=== PATIENT | female | born 1960 | race Caucasian/White ===

== ENCOUNTER 2019-09-29 16:10 | Inpatient (IN) | payer OTHER ==
[~2019-09-29] VITALS: Ht 180.3 cm; Wt 137.0 kg
[2019-09-29] MEDS ORDERED: HYDROMORPHONE HCL 0.5 MG/ 0.5 ML SYRINGE (J1170 PER 1) IM ONE ×2 (17:30→19:15)
--- NOTE | 2019-09-29 19:08 | REPVR ---
PROCEDURE INFORMATION: Exam: XR Right Ankle Exam date and time: 09/29/2019 7:02 PM Age: 59 years old Clinical indication: Pain; Ankle; Right; Patient HX: Post reduction; Additional info: Right ankle fracture; Post splint TECHNIQUE: Imaging protocol: XR Right ankle. Views: 1 or 2 views. COMPARISON: CCR-ANKLE RIGHT OUTSIDE PRIOR 09/29/2019 10:44 AM FINDINGS: Bones/joints: In cast views postreduction views of a previously demonstrated distal fibular fracture. Cast obscures bone detail. Soft tissues: Unremarkable. IMPRESSION: In cast views of a previously demonstrated distal fibular fracture. Electronically signed by: Bertin Houser On 09/29/2019 19:08:29 PM
[2019-09-29 19:59] LABS: BASO % 0.6 % (0.0-1.0); EOS # 0.5 10^3/uL (0.0-0.5); EOS % 6.6 % (0.0-3.0); HEMATOCRIT 41.8 % (36.0-47.0); LYMPH # 2.5 10^3/uL (1.5-5.0); LYMPH % 34.3 % (24.0-44.0); MEAN CORPUSCULAR HEMOGLOBIN 28.6 pg (27.0-33.0); MEAN CORPUSCULAR HGB CONC 33.5 g/dl (32.0-36.5); MEAN CORPUSCULAR VOLUME 85.5 fl (80.0-96.0); MONO # 0.6 10^3/uL (0.0-0.8); MONO % 7.6 % (0.0-5.0); NEUTROPHILS # 3.6 10^3/uL (1.5-8.5); NEUTROPHILS % 50.5 % (36.0-66.0); PLATELET COUNT, AUTOMATED 357 10^3/uL (150-450); RED BLOOD COUNT 4.89 10^6/uL (4.00-5.40); WHITE BLOOD COUNT 7.2 10^3/uL (4.0-10.0)
[2019-09-29] MEDS ORDERED: HYDROMORPHONE HCL 0.5 MG/ 0.5 ML SYRINGE (J1170 PER 1) IV ONE (20:00)
[2019-09-29 20:29] LABS: ALBUMIN 3.5 GM/DL (3.2-5.2); ALT/SGPT 32 U/L (12-78); BILIRUBIN,TOTAL 0.2 MG/DL (0.2-1.0); BLOOD UREA NITROGEN 10 MG/DL (7-18); CARBON DIOXIDE LEVEL 28 MEQ/L (21-32); CHLORIDE LEVEL 108 MEQ/L (98-107); CREATININE FOR GFR 0.82 MG/DL (0.55-1.30); GLOMERULAR FILTRATION RATE > 60.0 (>51); GLUCOSE, FASTING 96 MG/DL (70-100); POTASSIUM SERUM 4.1 MEQ/L (3.5-5.1); SODIUM LEVEL 141 MEQ/L (136-145); TOTAL PROTEIN 6.9 GM/DL (6.4-8.2)
[2019-09-29] MEDS ORDERED: CRAN450T4 PO (20:58)
[2019-09-29] MEDS ORDERED: ABIL10TA9 PO (20:58)
[2019-09-29] MEDS ORDERED: CRAN400C PO (20:58)
[2019-09-29] MEDS ORDERED: KLON1TAB PO ×2 (20:58)
[2019-09-29] MEDS ORDERED: PAXI40TA10 PO (20:58)
[2019-09-29] MEDS ORDERED: ALIG4CAP PO (20:58)
[2019-09-29] MEDS ORDERED: VITA200028 PO (20:58)
[2019-09-29] MEDS ORDERED: METF850T4 PO (20:58)
[2019-09-29] MEDS ORDERED: OCUV1CAP4 PO (20:58)
[2019-09-29] MEDS ORDERED: ZALE10CA PO (20:58)
[2019-09-29] MEDS ORDERED: METO1TAB33 PO (20:58)
[2019-09-29] MEDS ORDERED: WELLTAB40 PO (20:58)
[2019-09-29] MEDS ORDERED: LISI-538 PO (20:58)
--- NOTE | 2019-09-29 20:59 | HPEPDOC ---
[facility] Medical History & Physical Date of Admission Sep 29, 2019 Date of Service: Sep 29, 2019 History and Physical CHIEF COMPLAINT: Fall HISTORY OF PRESENT ILLNESS: Patient is 59 year old female with PMH gastric bypass surgery, prediabetes, HTN, HLD, depression and anxiety, hx pseudotumor cerebri presents to [facility] post fall at home on Wednesday resulting in b/l ankle injuries. She was seen in [place] ER on Wednesday and was told she had a sprain on the L. ankle and R. distal fibular fx on the right side. Initially referred to ortho there but had to be referred to [facility] due to insurance issues. She reports having pain in b/l ankles for the past few days but currently comfortable as she just received some dilaudid. Jonathan ashby any complaint including any chest pain, SOB, fever or chills. PAST MEDICAL HISTORY: Refer to HPI PAST SURGICAL HISTORY: Tonsillectomy Gastric bypass surgery SOCIAL HISTORY: Former smoker No alcohol or drug use FAMILY HISTORY: Siblings- CAD ALLERGIES: Please see below. REVIEW OF SYSTEMS: 10 point ROS negative except as stated above HOME MEDICATIONS: Please see below. PHYSICAL EXAMINATION: - General: Lying in bed comfortably, Speaking in full sentences, AAOx3 - HEENT: Atraumatic, PERRLA - CVS: normal rate, normal rhythm - Lungs: Good air entry bilaterally, No appreciable wheezing / rales / rhonchi - Abdomen: Soft, Non-distended, Non-tender - Extremities: L. ankle in brace, RLE wrapped in YOBANY wrap. Sensory and motor functions intact. No significant tenderness at this time. - Skin: Warm and dry - Neuro: No focal motor or sensory deficit LABORATORY DATA: See below. IMAGING: R. ankle XR- FINDINGS: Bones/joints: In cast views postreduction views of a previously demonstrated distal fibular fracture. Cast obscures bone detail. Soft tissues: Unremarkable. ASSESSMENT AND PLAN: 1. R. distal fibular fracture - 2/2 traumatic fall on Wednesday. - Plan for OR in AM with orthopedic surgery. - c/w pain control. LR for IVF. - Patient has no known cardiopulmonary disease, no active chest pain or SOB. - Not on any long acting insulin currently, antiplatelet or anticoagulation medications that needs to be held. Hold lisinopril. - She is Class I RCRI pre-op cardiac risks. No further workup needed prior to surgery. - NPO after midnight. Hold chemical dvt ppx after midnight. 2. HTN - BP controlled. Resume metoprolol. 3. HLD - Not on statin at this time. 4. prediabetes - On metformin. Hold at this time. - cover with ISS. 5. Depression and anxiety - Restart home med. 6. hx pseudotumor cerebrei - No active problems. DVT ppx: HSQ Code status: Full code Vital Signs Vital Signs Date Time Temp Pulse Resp B/P (MAP) Pulse Ox O2 Delivery O2 Flow Rate FiO2 09/29/19 19:55 18 98 Room Air 09/29/19 17:05 09/29/19 16:11 98.4 85 Laboratory Data Labs 24H Laboratory Tests 2 09/29/19 19:50: Immature Granulocyte % (Auto) 0.4, Neutrophils (%) (Auto) 50.5, Lymphocytes (%) (Auto) 34.3, Monocytes (%) (Auto) 7.6H, Eosinophils (%) (Auto) 6.6H, Basophils (%) (Auto) 0.6, Neutrophils # (Auto) 3.6, Lymphocytes # (Auto) 2.5, Monocytes # (Auto) 0.6, Eosinophils # (Auto) 0.5, Basophils # (Auto) 0.0, Nucleated Red Blood Cells % (auto) 0.0, Anion Gap 5L, Glomerular Filtration Rate > 60.0, Calcium Level 9.0, Total Bilirubin 0.2, Aspartate Amino Transf (AST/SGOT) 22, Alanine Aminotransferase (ALT/SGPT) 32, Alkaline Phosphatase 65, Total Protein 6.9, Albumin 3.5, Albumin/Globulin Ratio 1.0L CBC/BMP Laboratory Tests 09/29/19 19:50 Home Medications Scheduled Aripiprazole (Abilify) 10 Mg Tablet, 10 MG PO DAILY Bifidobacterium Infantis (Align) 4 Mg Capsule, 4 MG PO DAILY Bupropion HCl (Wellbutrin Xl) 300 Mg Tab.er.24h, 300 MG PO DAILY Cranberry (Cranberry) 400 Mg Capsule, 400 MG PO DAILY Ergocalciferol (Vitamin D2) (Vitamin D2) 50 Mcg (2000 Unit) Tablet, 50 MCG PO DAILY Lisinopril (Lisinopril) 20 Mg Tablet, 20 MG PO DAILY Metformin HCl (Metformin HCl) 850 Mg Tablet, 850 MG PO DAILY Metoprolol Succinate (Metoprolol Succinate) 100 Mg Tab.er.24h, 100 MG PO DAILY Paroxetine HCl (Paxil) 40 Mg Tablet, 80 MG PO DAILY [Lutein] , 20 MG PO DAILY Scheduled PRN Clonazepam (Klonopin) 1 Mg Tablet, 1 MG PO TIDP PRN for anxiety Clonazepam (Klonopin) 1 Mg Tablet, 2 MG PO QHS PRN for ANXIETY Zaleplon (Zaleplon) 10 Mg Capsule, 10 MG PO QHS PRN for SLEEP NEW MEDICATION, HAS NOT STARTED. TO REPLACE HS KLONOPIN Allergies Coded Allergies: topiramate (Verified Allergy, Mild, 09/29/19) simvastatin (Verified Allergy, Unknown, 09/29/19) varenicline (Verified Allergy, Unknown, 09/29/19) A-FIB/CHADSVASC A-FIB History Current/History of A-Fib/PAF?: No Current PO Anticoag Therapy: No RUTHY ROMANO MD Sep 29, 2019 20:59
[2019-09-29] MEDS ORDERED: LUTEIN PO (21:00)
[2019-09-29] MEDS ORDERED: MORPHINE 2 MG/ML 1ML VIAL (J2270) IV PRN (21:00)
[2019-09-29] MEDS ORDERED: ACETAMINOPHEN TAB 650MG DOSE (2X325MG) PO PRN (21:00)
[2019-09-29] MEDS ORDERED: PERCOCET 5MG/325MG TAB PO PRN (21:00)
[2019-09-29] MEDS ORDERED: traMADol 50 MG TAB PO PRN (21:00)
[2019-09-29] MEDS ORDERED: HEPARIN SOD (PORCINE) 5000UNITS/ML 1ML VIAL/SYRINGE SQ ONE (21:30)
[2019-09-29] MEDS: LR 1,000 ML IV SCH (21:30)
[2019-09-29] MEDS ORDERED: clonazePAM 1 MG TAB PO PRN ×2 (23:00)
[2019-09-30] VITALS (9 sets, daily range): BP systolic 111–150; BP diastolic 65–95
[2019-09-30] MEDS ORDERED: HEPARIN SOD (PORCINE) 5000UNITS/ML 1ML VIAL/SYRINGE SC SCH (06:00)
[2019-09-30] MEDS ORDERED: propofoL 200 MG/20 ML VIAL As Ordered ONE ×2 (07:29→09:18)
[2019-09-30] MEDS ORDERED: LIDOCAINE 2% 100MG/5ML SDV (FOR ANES.) As Ordered ONE (07:29)
[2019-09-30] MEDS ORDERED: dexameTHASONE 4 MG/ML 1ML VIAL (J1100 PER 1MG) As Ordered ONE (07:30)
[2019-09-30] MEDS ORDERED: ONDANSETRON 4MG/2ML VIAL As Ordered ONE (07:30)
[2019-09-30] MEDS ORDERED: fentaNYL 100 MCG/2 ML INJECTION (J3010) As Ordered ONE ×3 (07:31→09:21)
[2019-09-30] MEDS ORDERED: MIDAZOLAM INJ 2MG/2ML VIAL (J2250 PER 1MG) As Ordered ONE ×2 (07:31→08:12)
[2019-09-30] MEDS: LR 1,000 ML IV SCH (08:00)
[2019-09-30] MEDS ORDERED: metFORMIN 850 MG TAB PO SCH (08:00)
[2019-09-30] MEDS ORDERED: ceFAZolin 2 GM/D5W 50 ML IV BAG (J0690 PER 500MG) As Ordered ONE (08:18)
[2019-09-30] MEDS ORDERED: fentaNYL 100 MCG/2 ML INJECTION (J3010) IV PRN ×2 (08:30→11:00)
[2019-09-30] MEDS: MIDAZOLAM INJ 2MG/2ML VIAL (J2250 PER 1MG) IV PRN ×2 (08:33→08:36)
[2019-09-30 08:36] LABS: HEMATOCRIT 39.2 % (36.0-47.0); MEAN CORPUSCULAR HEMOGLOBIN 28.6 pg (27.0-33.0); MEAN CORPUSCULAR HGB CONC 33.2 g/dl (32.0-36.5); MEAN CORPUSCULAR VOLUME 86.3 fl (80.0-96.0); PLATELET COUNT, AUTOMATED 338 10^3/uL (150-450); RED BLOOD COUNT 4.54 10^6/uL (4.00-5.40); WHITE BLOOD COUNT 5.7 10^3/uL (4.0-10.0)
[2019-09-30] MEDS ORDERED: lisinopriL 20 MG TAB PO SCH (09:00)
[2019-09-30 09:23] LABS: BLOOD UREA NITROGEN 9 MG/DL (7-18); CARBON DIOXIDE LEVEL 29 MEQ/L (21-32); CHLORIDE LEVEL 108 MEQ/L (98-107); CREATININE FOR GFR 0.74 MG/DL (0.55-1.30); GLOMERULAR FILTRATION RATE > 60.0 (>51); GLUCOSE, FASTING 104 MG/DL (70-100); POTASSIUM SERUM 4.2 MEQ/L (3.5-5.1); SODIUM LEVEL 142 MEQ/L (136-145)
[2019-09-30] MEDS ORDERED: ACETAMINOPHEN 1000MG 100ML IV BTL (OFIRMEV) (J0131 PER 10MG) As Ordered ONE (10:06)
[2019-09-30] MEDS ORDERED: KETOROLAC 60MG 2ML VIAL As Ordered ONE (10:07)
[2019-09-30] MEDS ORDERED: dexameTHASONE 10MG/1ML VIAL PRES.FREE (J1100 PER 1MG) ONE (10:17)
[2019-09-30] MEDS ORDERED: ROPIvacaine 0.5% 30ML INJECTION (J2795 PER 1MG) ONE (10:17)
[2019-09-30] MEDS ORDERED: EPINEPHrine INJ 1 MG/ML 1ML AMP ONE (10:17)
[2019-09-30] MEDS ORDERED: LIDOCAINE 1% MDV 20ML VIAL ONE (10:17)
[2019-09-30] MEDS ORDERED: oxyCODONE 5MG TAB As Ordered ONE (10:46)
[2019-09-30] MEDS ORDERED: ONDANSETRON 4MG/2ML VIAL IV PRN (11:00)
[2019-09-30] MEDS ORDERED: oxyCODONE 5MG TAB PO PRN (11:00)
[2019-09-30] MEDS ORDERED: MORPHINE 2 MG/ML 1ML VIAL (J2270) IV PRN (11:00)
[2019-09-30] MEDS ORDERED: METOCLOPRAMIDE INJ 10MG/2ML VIAL (J2765 PER 1) IV PRN (11:00)
[2019-09-30] MEDS ORDERED: MEPERIDINE INJ 25 MG/ML VIAL (J2175) IV PRN (11:00)
[2019-09-30] MEDS ORDERED: LR 1,000 ML IV SCH ×2 (11:00)
[2019-09-30] MEDS: PARoxetine 20 MG TAB PO SCH (11:29)
[2019-09-30] MEDS: METOPROLOL SUCC (TopROL XL) 100MG *XL* TAB PO SCH (11:30)
[2019-09-30] MEDS: buPROPion **XL** TABLET 150MG (WELLBUTRIN XL) PO SCH (11:32)
[2019-09-30] MEDS: oxyCODONE 5MG TAB PO PRN ×2 (11:32→15:53)
[2019-09-30] MEDS: ARIPiprazole 10 MG TAB PO SCH (12:29)
[2019-09-30] MEDS: ceFAZolin SOD 2 GM in IV 1 EA IV SCH (16:24)
[2019-09-30] MEDS: ACETAMINOPHEN 500 MG TAB PO SCH (17:24)
--- NOTE | 2019-09-30 18:34 | IPNPDOC ---
Subjective Date Seen The patient was seen on 09/30/19. Subjective Chief Complaint/HPI right ankle fracture Events since last encounter s/p ORIF right ankle General: Reports: Normal Appetite; Denies: Chills, Night Sweats, Fatigue, Malaise Constitutional: Denies: Chills, Fever, Night Sweats Eyes: Denies: Pain, Vision change ENT: Denies: Head Aches, Ear Pain, Dysphagia Skin: Denies: Rash, Lesions, Breakdown Pulmonary: Denies: Dyspnea, Cough Cardiovascular: Denies: Chest Pain, Palpitations, Orthopnea, Paroxysmal Noc. Dyspnea, Lt Headedness Gastrointestinal: Denies: Nausea, Vomiting, Abdominal Pain, Diarrhea, Constipation Genitourinary: Denies: Dysuria, Frequency, Incontinence, Retention Hematologic: Denies: Bruising, Bleeding Excessively Musculoskeletal: Denies: Neck Pain, Back Pain, Joint Pain, Muscle Pain, Spasms Neurological: Denies: Weakness, Numbness, Change in speech, Confusion Psych: Reports: Mood Normal; Denies: Depression, Memory Issues Objective Physical Examination General Exam: Positive: Alert, No Acute Distress Eye Exam: Positive: PERRLA, Conjunctiva & lids normal, EOMI; Negative: Sclera icteric ENT Exam: Positive: Atraumatic, Mucous membr. moist/pink, Pharynx Normal Neck Exam: Positive: Supple; Negative: JVD, thyromegaly Chest Exam: Positive: Clear to auscultation, Normal air movement Heart Exam: Positive: Rate Normal, Regular Rhythm, Normal S1, Normal S2; Negative: Murmurs, Rubs Telemetry: Positive: No significant arrhythmia Abdomen Exam: Positive: Normal bowel sounds, Soft; Negative: Tenderness, Hepatospenomegaly Female Exam: Positive: Nl Ext Genitalia; Negative: Lesions, Discharge, Odor, Tenderness Extremity Exam: Positive: Normal pulses, Other (right ankle in dressing and elevated); Negative: Clubbing, Cyanosis, Edema Skin Exam: Positive: Nl turgor and temperature; Negative: Rash, Breakdown Neuro Exam: Positive: Normal Gait, Normal Speech, Cranial Nerves 3-12 NL, Ref lexes 2+ Psych Exam: Positive: Mental status NL, Mood NL, Oriented x 3 Assessment /Plan Assessment 1. R. distal fibular fracture - s/p ORIF - ortho following 2. HTN on metoprolol. 3. HLD - Not on statin at this time. 4. prediabetes - On metformin. Hold at this time. - cover with ISS. 5. Depression and anxiety - resume home meds Plan/VTE VTE Prophylaxis Ordered?: Yes VS, I&O, 24H, Fishbone Vital Signs/I&O Vital Signs Date Time Temp Pulse Resp B/P (MAP) Pulse Ox O2 Delivery O2 Flow Rate FiO2 09/30/19 16:23 18 09/30/19 15:45 98.1 89 123/80 (94) 97 Nasal Cannula 2.0 I&O- Last 24 Hours up to 6 AM 09/30/19 06:00 Intake Total 0 ml Output Total 175 ml Balance -175 ml Laboratory Data 24H LABS Laboratory Tests 2 09/29/19 19:50: Immature Granulocyte % (Auto) 0.4, Neutrophils (%) (Auto) 50.5, Lymphocytes (%) (Auto) 34.3, Monocytes (%) (Auto) 7.6H, Eosinophils (%) (Auto) 6.6H, Basophils (%) (Auto) 0.6, Neutrophils # (Auto) 3.6, Lymphocytes # (Auto) 2.5, Monocytes # (Auto) 0.6, Eosinophils # (Auto) 0.5, Basophils # (Auto) 0.0, Nucleated Red Blood Cells % (auto) 0.0, Anion Gap 5L, Glomerular Filtration Rate > 60.0, Calcium Level 9.0, Total Bilirubin 0.2, Aspartate Amino Transf (AST/SGOT) 22, Alanine Aminotransferase (ALT/SGPT) 32, Alkaline Phosphatase 65, Total Protein 6.9, Albumin 3.5, Albumin/Globulin Ratio 1.0L 09/29/19 20:35: Coronavirus (COVID-19)(PCR) NEGATIVE 09/30/19 07:55: Nucleated Red Blood Cells % (auto) 0.0, Anion Gap 5L, Glomerular Filtration Rate > 60.0, Calcium Level 9.0 CBC/BMP Laboratory Tests 09/29/19 19:50 09/30/19 07:55 AJITH VIRGEN DO Sep 30, 2019 18:34
[2019-10-01] MEDS: ceFAZolin SOD 2 GM in IV 1 EA IV SCH (01:23)
[2019-10-01] MEDS: ACETAMINOPHEN 500 MG TAB PO SCH ×3 (01:24→17:41)
[2019-10-01 02:00] VITALS: BP 121/74
[2019-10-01 06:00] VITALS: BP 138/78
[2019-10-01] MEDS ORDERED: OXYC-517 PO (06:06)
[2019-10-01] MEDS ORDERED: ECOT81TA5 PO (06:06)
[2019-10-01] MEDS ORDERED: QC A650T3 PO (06:06)
[2019-10-01] MEDS: ARIPiprazole 10 MG TAB PO SCH (08:08)
[2019-10-01] MEDS: buPROPion **XL** TABLET 150MG (WELLBUTRIN XL) PO SCH (08:08)
[2019-10-01] MEDS: oxyCODONE 5MG TAB PO PRN ×3 (08:08→20:41)
[2019-10-01] MEDS: PARoxetine 20 MG TAB PO SCH (08:10)
[2019-10-01] MEDS: ASPIRIN 81 MG CHEW TABLET PO SCH ×2 (08:10→20:40)
[2019-10-01] MEDS: METOPROLOL SUCC (TopROL XL) 100MG *XL* TAB PO SCH (08:11)
[2019-10-01 10:00] VITALS: BP 118/74
[2019-10-01 14:00] VITALS: BP 132/73
--- NOTE | 2019-10-01 15:27 | IPNPDOC ---
Text Note Date of Service The patient was seen on 10/01/19. NOTE SUBJECTIVE: limitation when climbing stairs. no acute post-op concerns OBJECTIVE: FOCUSED EXAMINATION: HEENT:normocephalic LYMPHATICS: no lymphadenopathy LUNGS: clear to auscultation HEART: regular rate and rhythm ABDOMEN: soft/nontender EXTREMITIES: no pitting edema SKIN/NAILS: intact MUSCULOSKELETAL: grossly normal. dressing intact VITAL SIGNS: Please see below. ASSESSMENT and PLAN 1. R. distal fibular fracture - s/p ORIF - ortho following 2. HTN on metoprolol. 3. HLD - Not on statin at this time. 4. prediabetes - On metformin. Hold at this time. - cover with ISS. 5. Depression and anxiety - resume home meds Disposition: discharge tomorrow following PT clearance VS,Fishbone, I+O VS, Fishbone, I+O Vital Signs Date Time Temp Pulse Resp B/P (MAP) Pulse Ox O2 Delivery O2 Flow Rate FiO2 10/01/19 14:00 98.3 79 16 132/73 (92) 97 10/01/19 10:00 Room Air 09/30/19 15:45 2.0 I&O- Last 24 Hours up to 6 AM 10/01/19 05:59 Intake Total 1920 ml Output Total 610 ml Balance 1310 ml AJITH VIRGEN DO Oct 01, 2019 15:27
[2019-10-01 22:00] VITALS: BP 144/71
[2019-10-02] MEDS: ACETAMINOPHEN 500 MG TAB PO SCH ×2 (02:00→08:48)
[2019-10-02] MEDS: oxyCODONE 5MG TAB PO PRN ×2 (04:55→11:00)
[2019-10-02 06:00] VITALS: BP 161/80
[2019-10-02] MEDS: buPROPion **XL** TABLET 150MG (WELLBUTRIN XL) PO SCH (08:47)
[2019-10-02] MEDS: PARoxetine 20 MG TAB PO SCH (08:47)
[2019-10-02] MEDS: ARIPiprazole 10 MG TAB PO SCH (08:47)
[2019-10-02] MEDS: ASPIRIN 81 MG CHEW TABLET PO SCH (08:47)
[2019-10-02 08:48] VITALS: BP 170/92
[2019-10-02] MEDS: METOPROLOL SUCC (TopROL XL) 100MG *XL* TAB PO SCH (08:48)
--- NOTE | 2019-10-02 23:28 | DS.PDOC ---
Discharge Summary General Date of Admission Sep 29, 2019 at 20:51 Date of Discharge 10/02/19 Discharge Summary PROCEDURES PERFORMED DURING STAY: [None]. ADMITTING DIAGNOSES: 1. R. distal fibular fracture DISCHARGE DIAGNOSES: 1. R. distal fibular fracture s/p ORIF COMPLICATIONS/CHIEF COMPLAINT: Closed Fracture Of R Distal Fibula. HISTORY OF PRESENT ILLNESS: R. distal fibular fracture HOSPITAL COURSE: required ORIF for R. distal fibular fracture. tolerated well DISCHARGE MEDICATIONS: Please see below. ALLERGIES: Please see below. PHYSICAL EXAMINATION ON DISCHARGE: VITAL SIGNS: Please see below. GENERAL: no acute distress HEENT: normocephalic NECK: no masses CARDIOVASCULAR EXAMINATION: rrr RESPIRATORY EXAMINATION: no abnormal spunds on auscultation ABDOMINAL EXAMINATION: soft/nontender EXTREMITIES: grossly normal. right leg in dressing SKIN: intact NEUROLOGICAL EXAMINATION: no focal deficits PSYCHIATRIC EXAMINATION: normal mood LABORATORY DATA: Please see below. IMAGING: reviwed PROGNOSIS: good ACTIVITY: per ortho DIET: heart healthy DISCHARGE PLAN: home DISPOSITION: Home, Self-Care. DISCHARGE INSTRUCTIONS: 1. pcp in 1-2 weeks ITEMS TO FOLLOWUP ON ON OUTPATIENT: 1. ortho recs DISCHARGE CONDITION: [Stable]. TIME SPENT ON DISCHARGE: Greater than minutes. Vital Signs/I&Os Vital Signs Date Time Temp Pulse Resp B/P (MAP) Pulse Ox O2 Delivery O2 Flow Rate FiO2 10/02/19 11:30 17 10/02/19 08:48 78 170/92 10/02/19 06:00 97.3 96 Room Air 09/30/19 15:45 2.0 I&O- Last 24 Hours up to 6 AM 10/02/19 06:00 Intake Total 1410 ml Output Total 250 ml Balance 1160 ml Discharge Medications Scheduled Acetaminophen (Acetaminophen 8 Hour) 650 Mg Tablet.er, 1,000 MG PO Q8H Aripiprazole (Abilify) 10 Mg Tablet, 10 MG PO DAILY, (Reported) Aspirin (Ecotrin) 81 Mg Tablet.dr, 1 TAB PO BID for pain Bifidobacterium Infantis (Align) 4 Mg Capsule, 4 MG PO DAILY, (Reported) Bupropion HCl (Wellbutrin Xl) 300 Mg Tab.er.24h, 300 MG PO DAILY, (Reported) Cranberry (Cranberry) 400 Mg Capsule, 400 MG PO DAILY, (Reported) Ergocalciferol (Vitamin D2) (Vitamin D2) 50 Mcg (2000 Unit) Tablet, 50 MCG PO DAILY, (Reported) Lisinopril (Lisinopril) 20 Mg Tablet, 20 MG PO DAILY, (Reported) Metformin HCl (Metformin HCl) 850 Mg Tablet, 850 MG PO DAILY, (Reported) Metoprolol Succinate (Metoprolol Succinate) 100 Mg Tab.er.24h, 100 MG PO DAILY, (Reported) Paroxetine HCl (Paxil) 40 Mg Tablet, 80 MG PO DAILY, (Reported) [Lutein] , 20 MG PO DAILY, (Reported) Scheduled PRN Clonazepam (Klonopin) 1 Mg Tablet, 1 MG PO TIDP PRN for anxiety, (Reported) Clonazepam (Klonopin) 1 Mg Tablet, 2 MG PO QHS PRN for ANXIETY, (Reported) Oxycodone HCl (Oxycodone HCl) 5 Mg Tablet, 1-2 TABS PO Q4H PRN for PAIN Zaleplon (Zaleplon) 10 Mg Capsule, 10 MG PO QHS PRN for SLEEP, (Reported) NEW MEDICATION, HAS NOT STARTED. TO REPLACE HS KLONOPIN Allergies Coded Allergies: topiramate (Verified Allergy, Mild, 09/29/19) simvastatin (Verified Allergy, Unknown, 09/29/19) varenicline (Verified Allergy, Unknown, 09/29/19) AJITH VIRGEN DO Oct 02, 2019 23:28
--- NOTE | 2019-10-17 10:00 | CR ---
DATE: 09/29/2019 INDICATION: Right ankle fracture. HISTORY OF PRESENT ILLNESS: Nathaly is a 59-year-old female with multiple medical problems, who sustained a fall down several stairs this past Wednesday. She had x-rays at a facility in [place], [place], where she was diagnosed with a right ankle fracture and told that she had an avulsion fracture on the left side. She was given a splint, but says it did not fit well. She had worsening pain today, so went back to [place] and it showed some widening of the ankle mortise. She has [employer] and the orthopedic group locally told her they do not take [employer]. So, her sees the orthopedic group in [place] and recommended she come to [facility] and he drove her to the hospital today. She is having significant pain and swelling in both ankles. PAST MEDICAL HISTORY: Notable for anxiety and depression on Klonopin, diabetes mellitus on Metformin, sleep apnea and she uses her CPAP, hypertension. PAST SURGICAL HISTORY: Patient has had gastric bypass. For the patient's full medications, allergies, social history and review of systems; please see the admitting hospitalist H&P. SOCIAL HISTORY: Patient does not use any assistive devices. She does not smoke. She unfortunately has had two sons that have . She lives about 20 minutes [place] of [place], [place]. PHYSICAL EXAMINATION: GENERAL: Reveals a middle-age female in no distress. She is alert and oriented x3. NEUROLOGIC: Appropriate mood and affect. CARDIOVASCULAR: 2+ DP pulses. PULMONARY: Non-labored breathing. SKIN: Patient has multiple scabs on the right tibia. She says they are bug bites from being outside. There are no open wounds from her ankle injury. Toenails are in poor condition. MUSCULOSKELETAL: Patient has moderate swelling in the right ankle, but the skin does wrinkle. No fracture blisters seen. She has tenderness to palpation of the fibula fracture site. There is significant foot swelling, but no tenderness in the midfoot. She can fire EHL and FHL. Sensation to light touch in the foot is grossly intact. IMAGING STUDIES: Two sets at the outside hospital x-rays and then a set here from [facility] reveal an SER4 ankle fracture pattern with an oblique Treviño B distal fibula fracture and widening of the medial clear space. Left ankle x-rays show sprain versus small avulsion fracture. ASSESSMENT: Nathaly has an unstable right ankle fracture and she has a left ankle sprain. She is having great difficulty getting around at home. Right ankle requires open reduction internal fixation. Given that the swelling is low enough currently that we could move forward with surgery and patient has a strong preference for surgery [facility]. We will have the patient admitted to the hospitalist service for medical clearance, management of diabetes and her other medical conditions. PLAN: The plan would be to proceed with surgery tomorrow on 09/30/2019 for ORIF of right ankle. The patient will be non-weightbearing on the right lower extremity. She can weight bear as tolerated on the left lower extremity, and she can use the stirrup for comfort. We will switch her to a lace-up orthosis at her first follow-up visit. No Heparin or Lovenox after midnight. She will need a rapid COVID Test. She was placed into a new well padded sugar-tong splint with a gentle mold. I placed her on six blankets for elevation above the level of her heart. WILLIAMD
--- NOTE | 2019-10-18 16:40 | ECGEPIP ---
[facility] - ED Test Date: 2019-09-29 Pat Name: Nathaly Nieto Department: Room: 15 Gender: Female Set Off Press Operator: satya : 1960 Requested By: Yunior Order Number: [id number] Reading MD: Melissa Duncan Measurements Intervals [place] Rate: 80 P: 63 MA: 177 QRS: -2 QRSD: 84 T: 38 QT: 355 QTc: 411 Interpretive Statements SINUS RHYTHM LOW QRS VOLTAGE IN PRECORDIAL LEADS POSSIBLE ANTERIOR MYOCARDIAL INFARCTION, PROBABLY OLD BORDERLINE ECG SEE SCANNED DOWNTIME REPORT
--- NOTE | 2019-10-30 10:16 | REP ---
RIGHT ANKLE SERIES: 7-VIEWS / INTRAOPERATIVE IMAGING COMPARISON: Radiographs 09/29/2019. FLUOROSCOPY TIME: 40 seconds reported. FINDINGS: A sequence of seven last image hold fluoroscopically obtained spot radiographs of the ankle document open reduction internal fixation distal fibular plating. Ankle mortise is intact. No laterality markers are visible. MTDD
--- NOTE | 2019-11-16 13:17 | RO ---
DATE OF OPERATION: 09/29/2019 PREOPERATIVE DIAGNOSIS: Right ankle fracture. POSTOPERATIVE DIAGNOSIS: Right ankle fracture. PROCEDURE: Open reduction, internal fixation, right ankle. SURGEON: Natali Palmer M.D. [employer] PILOT: None. ESTIMATED BLOOD LOSS: 10 mL. COMPLICATIONS: None. IMPLANTS: Synthes one-third tubular plate, 7-hole with associated 3.5 mm and 4.0 cancellous screws. CONDITION: Stable to recovery. INDICATIONS: Nathaly Nieto is a 59-year-old female who sustained a mechanical fall, resulting in a ligamentous SER 4 ankle fracture. Risks and benefits of surgery were discussed in detail with the patient and include, but are limited not to, infection, damage to nerves and blood vessels, continued pain and stiffness, need for additional procedures. Informed consent was obtained. DESCRIPTION OF PROCEDURE: Patient was met in the preoperative holding area. The right lower extremity was marked with at the correct operative site. She was taken to the operating room and placed in the supine position on the operating room table. Bony prominences were well padded. A well-padded tourniquet was placed on the right upper thigh. The right lower extremity was then prepped and draped in the normal sterile fashion. An official time-out was held, where the correct patient, operative site, and operative procedure were verified. Leg was exsanguinated, and tourniquet was inflated to 275 mm of mercury. An incision was made over the distal fibula in the posterolateral aspect of the bone. Careful dissection was performed at the level of the fibula fracture. The superficial peroneal nerve was identified and protected throughout the case. Fracture was identified and cleaned of hematoma and debris. It was reduced using a point of reduction forceps. Radiographs using the C-arm in AP, lateral, and oblique view showed satisfactory reduction. This was then held in place with a 0.062 K wire. I then placed a lag screw across the fracture, which had good compression. A 7- hole plate was selected and was secured proximally with 3.5 mm screws and distally with 4.0 mm screws. A cotton exam and external rotation stress test were both performed, and the ankle mortise was found to be stable without any medial clear space widening. Given this and that the patient's diabetes is very well controlled, I held off on placing any syndesmotic screws. Copious irrigation was performed. I was able to close distally over the plate with 2-0 Vicryl with the periosteum. Soft tissues were then closed with 3-0 Vicryl, and skin was closed using 3-0 nylon. A sterile dressing was applied followed by a well-padded splint. Patient was extubated and transferred to the recovery room in stable condition. PLAN: Patient will be nonweightbearing on the right lower extremity for 6 weeks. She will be readmitted to the hospital for intravenous (IV) antibiotics. She will followup in 2 weeks for likely suture removal and cast placement. edited: 11/28/2019 [id number] MTDD
== END 2019-10-02 12:00 | disposition home or self-care (01) | DRG 494 ==
LOC: M ED 16:10 → M ED INP 20:51 → ENRESERV 23:08 → M MS5PR 23:51
PROVIDERS: ADMIT Student in an Organized Health Care Education/Training Program; ATTEND Internal Medicine
PROC: 0QSJ04Z Reposition Right Fibula with Internal Fixation Device, Open Approach (ICD-10-PCS; principal; 2019-09-29)
DX: S82.431A Displaced oblique fracture of shaft of right fibula, initial encounter for closed fracture (principal); W10.8XXA Fall (on) (from) other stairs and steps, initial encounter; Y92.009 Unspecified place in unspecified non-institutional (private) residence as the place of occurrence of the external cause; F41.9 Anxiety disorder, unspecified; F32.9 Major depressive disorder, single episode, unspecified; R73.03 Prediabetes; G47.30 Sleep apnea, unspecified; I10 Essential (primary) hypertension; Z98.84 Bariatric surgery status; Z79.899 Other long term (current) drug therapy; Z88.8 Allergy status to other drugs, medicaments and biological substances

== ENCOUNTER 2019-10-17 16:59 | Emergency (ER) | payer OTHER ==
[~2019-10-17] VITALS: Ht 165.1 cm; Wt 131.8 kg
[~2019-10-17 16:59] MED LIST: ABIL10TA9 PO; ALIG4CAP PO; CRAN400C PO; CRAN450T4 PO; ECOT81TA5 PO; KLON1TAB PO; LISI-538 PO; LUTEIN PO; METF850T4 PO; METO1TAB33 PO; OCUV1CAP4 PO; OXYC-517 PO; PAXI40TA10 PO; QC A650T3 PO; VITA200028 PO; WELLTAB40 PO; ZALE10CA PO
--- NOTE | 2019-10-17 18:53 | REPVR ---
PROCEDURE INFORMATION: Exam: US Duplex Right Upper Extremity Veins, Limited Exam date and time: 10/17/2019 6:27 PM Age: 59 years old Clinical indication: Pain; Leg, upper; Right; Additional info: Calf pain TECHNIQUE: Imaging protocol: Real-time Duplex ultrasound of the Right Upper Extremity with 2-D light scale, color Doppler flow and spectral waveform analysis with image documentation. Limited exam focused on the right upper extremity veins. COMPARISON: No relevant prior studies available. FINDINGS: Right deep veins: Unremarkable. Axillary and brachial veins are patent throughout without thrombus. Normal Doppler waveforms. Normal compressibility and/or augmentation response. Visualized internal jugular and subclavian veins are patent. Right superficial veins: Unremarkable. Visualized cephalic and basilic veins are patent without thrombus. Soft tissues: Unremarkable. IMPRESSION: No evidence of deep vein thrombosis. Electronically signed by: Andrew Hill On 10/17/2019 18:53:04 PM
[2019-10-17 19:34] VITALS: BP 122/87
== END 2019-10-17 19:36 | disposition home or self-care (01) ==
LOC: M ED 16:59
DX: M79.604 Pain in right leg (principal); E11.9 Type 2 diabetes mellitus without complications; I10 Essential (primary) hypertension; E78.5 Hyperlipidemia, unspecified; J45.909 Unspecified asthma, uncomplicated; Z88.8 Allergy status to other drugs, medicaments and biological substances; Z79.84 Long term (current) use of oral hypoglycemic drugs; Z79.899 Other long term (current) drug therapy

== ENCOUNTER → 2019-12-28 | Outpatient (CLI) | payer OTHER ==
[2019-12-28 13:27] LABS: BASO # 0.1 10^3/uL (0.0-0.2); BASO % 0.9 % (0.0-1.0); EOS # 0.8 10^3/uL (0.0-0.5); EOS % 9.5 % (0.0-3.0); HEMATOCRIT 46.5 % (36.0-47.0); LYMPH # 2.3 10^3/uL (1.5-5.0); LYMPH % 29.3 % (24.0-44.0); MEAN CORPUSCULAR HEMOGLOBIN 27.6 pg (27.0-33.0); MEAN CORPUSCULAR HGB CONC 32.3 g/dl (32.0-36.5); MEAN CORPUSCULAR VOLUME 85.6 fl (80.0-96.0); MONO # 0.6 10^3/uL (0.0-0.8); MONO % 7.1 % (0.0-5.0); NEUTROPHILS # 4.2 10^3/uL (1.5-8.5); NEUTROPHILS % 52.7 % (36.0-66.0); PLATELET COUNT, AUTOMATED 435 10^3/uL (150-450); RED BLOOD COUNT 5.43 10^6/uL (4.00-5.40); WHITE BLOOD COUNT 7.9 10^3/uL (4.0-10.0)
[2019-12-28 14:01] LABS: ERYTHROCYTE SEDIMENTATION RATE 12 mm/hr (0-30)
== END ==
LOC: M PLALAB 10:04
PROVIDERS: ATTEND Orthopaedic Surgery
DX: S82.65XD Nondisplaced fracture of lateral malleolus of left fibula, subsequent encounter for closed fracture with routine healing (principal); X58.XXXD Exposure to other specified factors, subsequent encounter